=== PATIENT | male | born 1990 | race Caucasian/White ===

== ENCOUNTER 2018-10-06 19:45 | Emergency (ER) | payer OTHER, MEDICAID ==
--- NOTE | 2018-10-06 20:17 | ED Physician Chart ---
ED Chief Complaint/HPI - Patient Information Date Seen:: 10/06/18 Time Seen:: 20:00 Chief Complaint:: right shoulder pain History of Present Illness:: Patient slipped and fell in the rain 2 days ago landing on his right shoulder. He complains of right shoulder pain. He denies other injuries. Patient is right-hand dominant. Allergies:: Allergies Allergy/AdvReac Type Severity Reaction Status Date / Time No Known Allergies Allergy Verified 10/06/18 19:59 Vitals:: Vital Signs - 8 hr 10/06/18 19:50 Temp 98.6 F HR 89 RR 18 BP 155/85 O2 Sat % 96 Historian:: Patient Review:: Nurse's Note Reviewed ED Review of Systems - Review of Systems General/Constitutional: No fever, No chills Skin: No skin lesions Head: No headache Eyes: No loss of vision ENT: No earache Neck: No neck pain, No swelling Cardio Vascular: No chest pain, No palpitations Pulmonary: No SOB GI: No nausea, No vomiting, No diarrhea G/U: No dysuria Musculoskeletal: Bone or joint pain Endocrine: No polyuria, No polydipsia Psychiatric: No prior psych history Hematopoietic: No bruising Allergic/Immuno: No urticaria Neurological: No syncope ED Past Medical History - Past Medical History Past Medical History: No significant medical hx Family History: None Social History: Non Smoker, Alcohol, Other (social consumption of alcohol) Surgical History: other (tonsillectomy and drainage of a peritonsillar abscess) Psychiatricy History: None Medication: None Family Medical History - Family Member Mother History Unknown: Yes Ethnicity: Non- ED Physical Exam - Physical Examination General/Constitutional: Awake, Well-developed, well-nourished, Alert, No distress, GCS 15, Non-toxic appearing, Ambulatory Head: Atraumatic Eyes: Lids, conjuctiva normal, PERRL, EOMI Skin: Nl inspection, No rash, No skin lesions, No ecchymosis, Well hydrated, No lymphadenopathy ENMT: External ears, nose nl, Nasal exam nl, Lips, teeth, gums nl Neck: Nontender, Full ROM w/o pain, No JVD, No nuchal rigidity, No bruit, No mass, No stridor Respiratory: Nl effort/Exclusion, Clear to Auscultation, No Wheeze/Rhonchi/Rales Cardio Vascular: RRR, No murmur, gallop, rubs, NL S1 S2 GI: No tenderness/rebounding/guarding, No organomegaly, No hernia, Normal BS's, Nondistended, No mass/bruits, No McBurney tenderness : No CVA tenderness Other Extremities comments:: Right shoulder: No deformity; tenderness over acromioclavicular joint; milder tenderness over right scapula Neuro/Psych: Alert/oriented, DTR's symmetric, Normal sensory exam, Normal motor strength, Judgement/insight normal, Mood normal, Normal gait, No focal deficits Misc: Normal back, No paraspinal tenderness ED Labs/Radiology/EKG Results - Radiology Results Results: X-ray right shoulder is normal ED Assessment - Assessment General Assessment: Patient has a first-degree right acromioclavicular joint separation. Patient observed to use his right arm normally and I suggested he take tylenol for pain and that a sling would be an unnecessary inconvenience. ED Septic Shock - . Is Septic Shock (SBP<90, OR Lactate>4 mmol\L) present?: No - <6hrs of presentation: Vital Signs: Vital Signs - 8 hr 10/06/18 19:50 Temp 98.6 F HR 89 RR 18 BP 155/85 O2 Sat % 96 ED Reassessment (Disposition) - Reassessment Reassessment Condition:: Unchanged - Diagnosis Diagnosis:: First-degree acromioclavicular joint separation right shoulder - Aftercare/Follow up Instructions Aftercare/Follow-Up Instructions:: Refer to Discharge Instructions - Patient Disposition Discharge/Transfer:: Home Condition at Disposition:: Stable, Unchanged
--- NOTE | 2018-10-07 08:38 | Diagnostic Imaging Report ---
EXAM: Shoulder joint HISTORY: Trauma COMPARISON: None FINDINGS: Multiple views of right shoulder joint reviewed. The study demonstrates no evidence of fracture or dislocation. There is no evidence of subluxation. The acromion clinically joint is intact. The head of right humerus is well within the glenoid fossa. IMPRESSION: Normal examination of the right shoulder joint.
== END 2018-10-06 20:40 | disposition home or self-care (01) ==
LOC: ER 19:45
DX: S43.101A Unspecified dislocation of right acromioclavicular joint, initial encounter (principal); W01.0XXA Fall on same level from slipping, tripping and stumbling without subsequent striking against object, initial encounter; Y93.89 Activity, other specified; Y92.89 Other specified places as the place of occurrence of the external cause; Y99.8 Other external cause status
CPT/HCPCS: 73030-TC-RT; Z7502

== ENCOUNTER 2018-11-17 21:14 | Emergency (ER) | payer MEDICAID, OTHER ==
--- NOTE | 2018-11-17 21:47 | ED Physician Chart ---
ED Chief Complaint/HPI - Patient Information Date Seen:: 11/17/18 Time Seen:: 21:30 Chief Complaint:: left ear pain History of Present Illness:: Patient's had left earache for the last 2 days. He's had no recent upper respiratory tract infection, cough, vomiting, or diarrhea. No recent swimming or surfing. Allergies:: Allergies Allergy/AdvReac Type Severity Reaction Status Date / Time No Known Allergies Allergy Verified 11/17/18 21:16 Vitals:: Vital Signs - 8 hr 11/17/18 21:20 Temp 98.7 F HR 88 RR 18 BP 140/86 O2 Sat % 97 Historian:: Patient Review:: Nurse's Note Reviewed ED Review of Systems - Review of Systems General/Constitutional: No fever, No chills Skin: No skin lesions Head: No headache Eyes: No loss of vision ENT: Earache, No nasal drainage, No sore throat, No tinnitus Neck: No neck pain Cardio Vascular: No chest pain, No palpitations Pulmonary: No SOB GI: No nausea, No vomiting, No diarrhea Musculoskeletal: No bone or joint pain Endocrine: No polyuria Psychiatric: No prior psych history, No depression, No anxiety Allergic/Immuno: No urticaria Neurological: No syncope ED Past Medical History - Past Medical History Past Medical History: No significant medical hx Family History: None Social History: Non Smoker, Other (occasional alcohol consumption) Surgical History: other (tonsillectomy) Psychiatricy History: None Medication: None Family Medical History - Family Member Mother History Unknown: Yes Ethnicity: Non- ED Physical Exam - Physical Examination General/Constitutional: Awake, Well-developed, well-nourished, Alert, No distress, GCS 15, Non-toxic appearing, Ambulatory Head: Atraumatic Eyes: Lids, conjuctiva normal, PERRL, EOMI Skin: Nl inspection, No rash, No skin lesions, No ecchymosis, Well hydrated, No lymphadenopathy ENMT: External ears, nose nl, Nasal exam nl, Lips, teeth, gums nl Other ENMT comments:: kelly of left external auditory canal swollen; tympanic membranes clear; movement of the left ear is painful ED Assessment - Assessment General Assessment: Instructions given on how to apply Cortisporin otic drops ED Septic Shock - . Is Septic Shock (SBP<90, OR Lactate>4 mmol\L) present?: No - <6hrs of presentation: Vital Signs: Vital Signs - 8 hr 11/17/18 21:20 Temp 98.7 F HR 88 RR 18 BP 140/86 O2 Sat % 97 ED Reassessment (Disposition) - Reassessment Reassessment Condition:: Unchanged - Diagnosis Diagnosis:: Otitis externa left ear - Aftercare/Follow up Instructions Aftercare/Follow-Up Instructions:: Refer to Discharge Instructions Medication Prescribed:: Cortisporin otic to apply 4 drops left ear 4 times a day - Patient Disposition Discharge/Transfer:: Home Condition at Disposition:: Stable, Unchanged
== END 2018-11-17 21:50 | disposition home or self-care (01) ==
LOC: ER 21:14
DX: H60.92 Unspecified otitis externa, left ear (principal); Z90.89 Acquired absence of other organs
CPT/HCPCS: Z7502

== ENCOUNTER 2019-01-12 18:34 | Emergency (ER) | payer OTHER, MEDICAID ==
--- NOTE | 2019-01-12 19:40 | ED Physician Chart ---
ED Chief Complaint/HPI - Patient Information Date Seen:: 01/12/19 Time Seen:: 19:30 Chief Complaint:: redness, itching and discharge right eye History of Present Illness:: Patient developed redness and itching of the right eye yesterday morning. This morning noted yellow-white discharge in the medial canthus. Patient's had recent rhinorrhea without cough. Denies foreign body in right eye. Allergies:: Allergies Allergy/AdvReac Type Severity Reaction Status Date / Time No Known Allergies Allergy Verified 01/12/19 18:48 Vitals:: Vital Signs - 8 hr 01/12/19 18:49 Temp 97.5 F HR 77 RR 18 BP 150/64 O2 Sat % 97 Historian:: Patient Review:: Nurse's Note Reviewed ED Review of Systems - Review of Systems General/Constitutional: No fever, No chills Skin: No skin lesions Head: No headache Eyes: No loss of vision, Pain, Other (redness, discharge and itching) ENT: No earache Neck: No neck pain, No swelling Cardio Vascular: No chest pain, No palpitations Pulmonary: No SOB, No cough, No sputum GI: No nausea, No vomiting, No diarrhea Musculoskeletal: No bone or joint pain Endocrine: No polyuria Psychiatric: No prior psych history Hematopoietic: No bruising, No lymphadenopathy Allergic/Immuno: No urticaria Neurological: No syncope ED Past Medical History - Past Medical History Past Medical History: No significant medical hx Family History: None Social History: Non Smoker, Alcohol, Other (occasional alcohol consumption) Surgical History: other (tonsillectomy) Psychiatricy History: None Medication: None Family Medical History - Family Member Mother History Unknown: Yes Ethnicity: Non- ED Physical Exam - Physical Examination General/Constitutional: Awake, Well-developed, well-nourished, Alert, No distress, GCS 15, Non-toxic appearing, Ambulatory Head: Atraumatic Eyes: PERRL Other Eyes comments:: 3/4 conjunctival redness right eye; right upper eyelid everted and no foreign body seen Skin: Nl inspection, No rash, No skin lesions, No ecchymosis, Well hydrated, No lymphadenopathy ENMT: External ears, nose nl, Nasal exam nl, Lips, teeth, gums nl Neck: Nontender, Full ROM w/o pain, No JVD, No nuchal rigidity, No bruit, No mass, No stridor Respiratory: Nl effort/Exclusion, Clear to Auscultation, No Wheeze/Rhonchi/Rales Cardio Vascular: RRR, No murmur, gallop, rubs, NL S1 S2 GI: No tenderness/rebounding/guarding, No organomegaly, No hernia, Normal BS's, Nondistended, No mass/bruits, No McBurney tenderness : No CVA tenderness Extremities: No tenderness or effusion, Full ROM, normal strength in all extremities, No edema, Normal digits & nails Neuro/Psych: Alert/oriented, DTR's symmetric, Normal sensory exam, Normal motor strength, Judgement/insight normal, Mood normal, Normal gait, No focal deficits Misc: Normal back, No paraspinal tenderness ED Septic Shock - . Is Septic Shock (SBP<90, OR Lactate>4 mmol\L) present?: No - <6hrs of presentation: Vital Signs: Vital Signs - 8 hr 01/12/19 18:49 Temp 97.5 F HR 77 RR 18 BP 150/64 O2 Sat % 97 ED Reassessment (Disposition) - Reassessment Reassessment Condition:: Unchanged - Diagnosis Diagnosis:: Conjunctivitis right eye - Aftercare/Follow up Instructions Aftercare/Follow-Up Instructions:: Refer to Discharge Instructions Medication Prescribed:: sulamyd 10% ophthalmic to apply 2 drops right eye every two hours awake - Patient Disposition Discharge/Transfer:: Home Condition at Disposition:: Stable, Unchanged
== END 2019-01-12 19:40 | disposition home or self-care (01) ==
LOC: ER 18:34
DX: H10.9 Unspecified conjunctivitis (principal)
CPT/HCPCS: Z7502